=== PATIENT | female | born 1980 | race Caucasian/White ===

== ENCOUNTER 2017-01-13 12:57 | Emergency (ER) | payer SELFPAY ==
[~2017-01-13 12:57] MED LIST: ACYC-63 PO; ALPR0.25 PO; LEVO50TA5 PO
--- NOTE | 2017-01-13 14:43 | RAD ---
Indication right leg pain. Pope scale, color Doppler and spectral imaging was performed. The examination was targeted to the major arteries of the right lower extremity. The right common femoral artery has a normal triphasic waveform. A similar normal triphasic waveform is seen in the deep femoral. A normal triphasic waveform is seen throughout the course of the superficial femoral artery. A similar normal waveform is seen in the popliteal artery. The posterior tibial artery has a normal triphasic waveform as does the peroneal. The anterior tibial artery and dorsal pedal arteries are both triphasic. IMPRESSION: No evidence of significant arterial disease in the major arteries of the right lower extremity
--- NOTE | 2017-01-13 14:51 | PHYS DOC ---
Past History Past Medical History: Anxiety, Depression, Fibromyalgia, Hypothyroid, Migraines , UTI Past Surgical History: Hysterectomy Alcohol Use: Rarely Drug Use: None Adult General Chief Complaint Chief Complaint: BACK PAIN OR INJURY HPI HPI Patient is a 36 year old F who presents with chronic back pain and new leg pain. Jennifer states that she has been pain over the past months to years. She had does not have a primary care doctor and has not had pain medications for her symptoms in several weeks. She denies numbness or tingling. She denies weakness, urinary dysfunction and bowel dysfunction. She states that she has had right leg pain over the past several days. She is concerned that there is a clot as she feels her leg is swollen. She has pain with movement and palpation. She does not feel that there are alleviating factors. Pain does not radiate and is not localized Review of Systems Review of Systems Constitutional: Denies fever or chills [] Eyes: Denies change in visual acuity, redness, or eye pain [] HENT: Denies nasal congestion or sore throat [] Respiratory: Denies cough or shortness of breath [] Cardiovascular: No additional information not addressed in HPI [] GI: Denies abdominal pain, nausea, vomiting, bloody stools or diarrhea [] : Denies dysuria or hematuria [] Musculoskeletal: Negative except history of present illness Integument: Denies rash or skin lesions [] Neurologic: Denies headache, focal weakness or sensory changes [] Endocrine: Denies polyuria or polydipsia [] Family History Family History Noncontributory Current Medications Current Medications Medications reviewed Allergies Allergies Allergies Coded Allergies Type Severity Reaction Last Updated Verified pregabalin Allergy Severe Seizures 03/20/14 No Physical Exam Physical Exam Constitutional: Well developed, well nourished, no acute distress, non-toxic appearance. []Obese HENT: Normocephalic, atraumatic, bilateral external ears normal, oropharynx moist, no oral exudates, nose normal. [] Eyes: EOMI, conjunctiva normal, no discharge. [] Neck: Normal range of motion, no tenderness, supple, no stridor. [] Cardiovascular:Heart rate regular rhythm, no murmur [] Lungs & Thorax: Bilateral breath sounds clear to auscultation [] Abdomen: Bowel sounds normal, soft, no tenderness, no masses, no pulsatile masses. [] Skin: Warm, dry, no erythema, no rash. [] Back: No tenderness, no CVA tenderness. [] Tenderness to light touch bilaterally in upper mid and lower back. Extremities: No tenderness, no cyanosis, no clubbing, ROM intact, no edema. [] No notable size difference in lower extremity. No redness or bruising. Moderate tenderness to light palpation of the right leg Neurologic: Alert and oriented X 3, normal motor function, normal sensory function, no focal deficits noted. [] Psychologic: Affect normal, judgement normal, mood normal. [] Current Patient Data Vital Signs Vital Signs Date Time Temp Pulse Resp B/P (MAP) Pulse Ox O2 Delivery O2 Flow Rate FiO2 01/13/17 13:00 98.0 105 20 98 Room Air Radiology/Procedures Radiology/Procedures Ultrasound with Doppler Impressions: Negative per radiology report Course & Med Decision Making Course & Med Decision Making Pertinent Labs and Imaging studies reviewed. (See chart for details) Her pain is most consistent with fibromyalgia Dragon Disclaimer Dragon Disclaimer This chart was dictated in whole or in part using Voice Recognition software in a busy, high-work load, and often noisy Emergency Department environment. It may contain unintended and wholly unrecognized errors or omissions. Departure Departure: Impression: Primary Impression: Chronic pain Disposition: HOME, SELF-CARE Condition: STABLE Referrals: PCPMIRIAM (PCP) Patient Instructions: Chronic Pain Management Additional Instructions: Jennifer was seen in the emergency department for back and leg pain. No emergency medical condition was found on history or physical exam. She had a normal ultrasound of the leg to evaluate for a DVT. This test was negative. She was encouraged to follow up with a primary care doctor and/or pain management doctor as soon as possible for further management of her chronic medical condition Problem Qualifiers Primary Impression: Chronic pain Chronic pain type: chronic pain syndrome Qualified Codes: G89.4 - Chronic pain syndrome DANO REINA MD Jan 13, 2017 14:51
[2017-01-13 15:25] VITALS: BP 123/71
== END 2017-01-13 15:26 | disposition home or self-care (01) ==
LOC: ER 12:57
DX: G89.4 Chronic pain syndrome (principal); M79.604 Pain in right leg; M54.89 Other dorsalgia; E03.9 Hypothyroidism, unspecified; M79.7 Fibromyalgia; G43.909 Migraine, unspecified, not intractable, without status migrainosus; Z87.440 Personal history of urinary (tract) infections; Z88.8 Allergy status to other drugs, medicaments and biological substances
CPT/HCPCS: 93923; 99284-25

== ENCOUNTER 2017-05-24 15:05 | Emergency (ER) | payer SELFPAY ==
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
[2017-05-24] MEDS ORDERED: HYDR-971 PO (16:42)
[2017-05-24 17:19] VITALS: BP 151/96
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
== END 2017-05-24 17:19 | disposition home or self-care (01) ==
LOC: ER 15:05
DX: S06.0X0A Concussion without loss of consciousness, initial encounter (principal); M24.811 Other specific joint derangements of right shoulder, not elsewhere classified; E03.9 Hypothyroidism, unspecified; Z88.8 Allergy status to other drugs, medicaments and biological substances; V43.52XA Car driver injured in collision with other type car in traffic accident, initial encounter; Y93.89 Activity, other specified; Y99.8 Other external cause status; Y92.488 Other paved roadways as the place of occurrence of the external cause
CPT/HCPCS: 73030; 99284

== ENCOUNTER 2018-05-12 13:16 | Emergency (ER) | payer OTHER ==
[~2018-05-12] VITALS: Ht 160 cm; Wt 136.1 kg
[~2018-05-12 13:16] MED LIST changes: +HYDR-3165 PO
[2018-05-12] MEDS ORDERED: BENZONATATE 100 MG CAPSULE. PO ONE ×2 (13:42→14:00)
[2018-05-12] MEDS ORDERED: IPRATRPIUM/ALBUTEROL 0.5/2.5MG 3 ML NEBU. NEB ONE (13:45)
--- NOTE | 2018-05-12 13:45 | PHYS DOC ---
Past History Past Medical History: Fibromyalgia, Hypothyroid, Other Past Surgical History: Hysterectomy, Knee Replacement, Tonsillectomy Smoking: Cigarettes Alcohol Use: None Drug Use: Marijuana Adult General Chief Complaint Chief Complaint: COUGH HPI HPI Patient is a 38 year old female who presents with complaining of cough since last night. Patient complaining of nonproductive cough with throat and chest soreness with chills since last night associated with myalgia and hoarseness. Patient denies vomiting, diarrhea, sick contact, headache, neck pain. Review of Systems Review of Systems Constitutional: Denies fever, reports chills Eyes: Denies change in visual acuity, redness, or eye pain [] HENT: Reports nasal congestion and sore throat Respiratory: Reports cough and shortness of breath Cardiovascular: No additional information not addressed in HPI [] GI: Denies abdominal pain, nausea, vomiting, bloody stools or diarrhea [] : Denies dysuria or hematuria [] Musculoskeletal: Denies back pain or joint pain [] Integument: Denies rash or skin lesions [] Neurologic: Denies headache, focal weakness or sensory changes [] Endocrine: Denies polyuria or polydipsia [] All other systems were reviewed and found to be within normal limits, except as documented in this note. Current Medications Current Medications Current Medications Medications (Trade) Dose Ordered Sig/Marcelo Start Time Stop Time Status Last Admin Dose Admin Albuterol/ Ipratropium (Duoneb) 3 ml 1X ONCE 05/12/18 13:45 05/12/18 13:46 UNV Benzonatate (Tessalon Perle) 200 mg 1X ONCE 05/12/18 13:45 05/12/18 13:46 UNV Allergies Allergies Allergies Coded Allergies Type Severity Reaction Last Updated Verified pregabalin Allergy Severe Seizures 03/20/14 No Physical Exam Physical Exam Constitutional: Well developed, well nourished, moderate distress, non-toxic appearance. [] HENT: Normocephalic, atraumatic, bilateral external ears normal, oropharynx moist, pharyngeal erythema, no oral exudates, nose normal. [] Eyes: PERRLA, EOMI, conjunctiva normal, no discharge. [] Neck: Normal range of motion, no tenderness, supple, no stridor. [] Cardiovascular:Heart rate regular rhythm, no murmur [] Lungs & Thorax: Bilateral breath sounds clear to auscultation [] Abdomen: Bowel sounds normal, soft, no tenderness, no masses, no pulsatile masses. [] Skin: Warm, dry, no erythema, no rash. [] Back: No tenderness, no CVA tenderness. [] Extremities: No tenderness, no cyanosis, no clubbing, ROM intact, no edema. [] Neurologic: Alert and oriented X 3, normal motor function, normal sensory function, no focal deficits noted. [] Psychologic: Affect normal, judgement normal, mood normal. [] Current Patient Data Vital Signs Vital Signs Date Time Temp Pulse Resp B/P (MAP) Pulse Ox O2 Delivery O2 Flow Rate FiO2 05/12/18 13:20 99.7 103 24 97 Room Air EKG EKG [] Radiology/Procedures Radiology/Procedures [] Course & Med Decision Making Course & Med Decision Making Pertinent Labs reviewed. (See chart for details) Evaluation of patient in ER showed 38-year-old female patient with complaining of cough and congestion and hoarseness since last night. Patient had negative flu test and felt better with DuoNeb and Tessalon. Plan to discharge patient home to diagnose of URI. Dragon Disclaimer Dragon Disclaimer This electronic medical record was generated, in whole or in part, using a voice recognition dictation system. Departure Departure: Impression: Primary Impression: Upper respiratory infection Additional Impressions: Tobacco abuse Tobacco abuse counseling Disposition: HOME, SELF-CARE (at 1437) Condition: IMPROVED Referrals: BRONSON DEVRIES APRN (PCP) Patient Instructions: Smoking Cessation, Tips For Success, Upper Respiratory Infection, Adult Additional Instructions: Drink plenty of liquids Follow-up with your primary care physician in 3-5 days Return to ER if not getting better Scripts Azithromycin (ZITHROMAX) 250 Mg Tablet 1 PKG PO UD for infection, #1 PKG Prov: RUBIN CASON MD 05/12/18 Hydrocodone/Chlorphen P-Stirex (Tussionex Pennkinetic Susp) 115 Ml Cherry.er.12h 5 ML PO BID for cough and congestion, #60 ML Prov: RUBIN CASON MD 05/12/18 Albuterol Sulfate (PROAIR HFA INHALER) 8.5 Gm Hfa.aer.ad 2 PUFF INH PRN Q6HRS PRN for SHORTNESS OF BREATH, #1 INHALER 0 Refills Prov: RUBIN CASON MD 05/12/18 Problem Qualifiers RUBIN CASON MD May 12, 2018 13:45
[2018-05-12 14:32] LABS: INFLUENZA A PATIENT NEGATIVE (NEGATIVE); INFLUENZA B PATIENT NEGATIVE (NEGATIVE)
[2018-05-12] MEDS ORDERED: AZIT250T PO (14:40)
[2018-05-12] MEDS ORDERED: ALBU2.5V8 INH (14:40)
[2018-05-12] MEDS ORDERED: HYDR115S2 PO (14:40)
[2018-05-12 14:51] VITALS: BP 98/58
== END 2018-05-12 15:05 | disposition home or self-care (01) ==
LOC: ER 13:16
DX: J06.9 Acute upper respiratory infection, unspecified (principal); M79.7 Fibromyalgia; I10 Essential (primary) hypertension; F17.210 Nicotine dependence, cigarettes, uncomplicated; Z71.6 Tobacco abuse counseling; Z88.8 Allergy status to other drugs, medicaments and biological substances
CPT/HCPCS: 87804; 94640; 99283; J7620

== ENCOUNTER 2019-02-15 15:46 | Emergency (ER) | payer MEDICAID, OTHER ==
[~2019-02-15] VITALS: Ht 160 cm; Wt 136.1 kg
[~2019-02-15 15:46] MED LIST changes: +ALBU2.5V8 INH; +AZIT250T PO; +HYDR115S2 PO
[2019-02-15 15:57] VITALS: BP 142/73
[2019-02-15] MEDS ORDERED: HYDR-3165 PO (16:04)
[2019-02-15] MEDS ORDERED: PRED20TA PO (16:04)
--- NOTE | 2019-02-15 16:04 | PHYS DOC ---
Past History Past Medical History: Fibromyalgia, Hypothyroid, Other Past Surgical History: Hysterectomy, Knee Replacement, Tonsillectomy Smoking: Cigarettes Alcohol Use: None Drug Use: Marijuana Adult General Chief Complaint Chief Complaint: LOWER BACK PAIN OR INJURY HPI HPI Patient is a [age] year old [sex] who presents with [] Review of Systems Review of Systems Constitutional: Denies fever or chills [] Eyes: Denies change in visual acuity, redness, or eye pain [] HENT: Denies nasal congestion or sore throat [] Respiratory: Denies cough or shortness of breath [] Cardiovascular: No additional information not addressed in HPI [] GI: Denies abdominal pain, nausea, vomiting, bloody stools or diarrhea [] : Denies dysuria or hematuria [] Musculoskeletal: Denies back pain or joint pain [] Integument: Denies rash or skin lesions [] Neurologic: Denies headache, focal weakness or sensory changes [] Endocrine: Denies polyuria or polydipsia [] All other systems were reviewed and found to be within normal limits, except as documented in this note. Allergies Allergies Allergies Coded Allergies Type Severity Reaction Last Updated Verified pregabalin Allergy Severe Seizures 03/20/14 No Physical Exam Physical Exam Constitutional: Well developed, well nourished, no acute distress, non-toxic appearance. [] HENT: Normocephalic, atraumatic, bilateral external ears normal, oropharynx moist, no oral exudates, nose normal. [] Eyes: PERRLA, EOMI, conjunctiva normal, no discharge. [] Neck: Normal range of motion, no tenderness, supple, no stridor. [] Cardiovascular:Heart rate regular rhythm, no murmur [] Lungs & Thorax: Bilateral breath sounds clear to auscultation [] Abdomen: Bowel sounds normal, soft, no tenderness, no masses, no pulsatile masses. [] Skin: Warm, dry, no erythema, no rash. [] Back: No tenderness, no CVA tenderness. [] Extremities: No tenderness, no cyanosis, no clubbing, ROM intact, no edema. [] Neurologic: Alert and oriented X 3, normal motor function, normal sensory function, no focal deficits noted. [] Psychologic: Affect normal, judgement normal, mood normal. [] Current Patient Data Vital Signs Vital Signs Date Time Temp Pulse Resp B/P (MAP) Pulse Ox O2 Delivery O2 Flow Rate FiO2 02/15/19 15:57 98.2 90 18 100 Room Air EKG EKG [] Radiology/Procedures Radiology/Procedures [] Course & Med Decision Making Course & Med Decision Making Pertinent Labs and Imaging studies reviewed. (See chart for details) [] Dragon Disclaimer Dragon Disclaimer This electronic medical record was generated, in whole or in part, using a voice recognition dictation system. Departure Departure: Impression: Primary Impression: Exacerbation of chronic back pain Disposition: HOME, SELF-CARE Condition: STABLE Referrals: BRONSON DEVRIES APRN (PCP) Patient Instructions: Chronic Back Pain Scripts Hydrocodone Bit/Acetaminophen (NORCO 5-325 TABLET) 1 Each Tablet 0.5-1 TAB PO Q6HRS PRN for PAIN, #10 TAB Prov: ALYSA ROUSSEAU DO 02/15/19 Prednisone (PREDNISONE) 20 Mg Tablet 2 TAB PO DAILY for Back pain, #8 TAB Start this prescription tomorrow, Friday02/16/19 Prov: AYLSA ROUSSEAU DO 02/15/19 ALYSA ROUSSEAU DO Feb 15, 2019 16:04
[2019-02-15] MEDS ORDERED: DEXAMETHASONE 4 MG TABLET PO ONE (16:30)
[2019-02-15] MEDS ORDERED: ORPHENADRINE CITRATE 60 MG/2 ML VIAL. IM ONE (16:30)
[2019-02-15] MEDS ORDERED: KETOROLAC 30 MG/ML VIAL. IM ONE (16:30)
[2019-02-15] MEDS ORDERED: HYDROcodone/APAP 5/325MG 1 TAB TABLET PO ONE (16:30)
== END 2019-02-15 17:05 | disposition home or self-care (01) ==
LOC: ER 15:46
DX: G89.29 Other chronic pain (principal); M54.5 Low back pain; M79.7 Fibromyalgia; E03.9 Hypothyroidism, unspecified; F17.210 Nicotine dependence, cigarettes, uncomplicated; Z90.710 Acquired absence of both cervix and uterus; Z88.8 Allergy status to other drugs, medicaments and biological substances
CPT/HCPCS: 96372; 99284; J1885; J2360; J8540

== ENCOUNTER 2019-02-22 10:11 | Emergency (ER) | payer MEDICAID ==
[~2019-02-22] VITALS: Ht 160 cm; Wt 136.1 kg
[~2019-02-22 10:11] MED LIST changes: +PRED20TA PO
--- NOTE | 2019-02-22 10:39 | PHYS DOC ---
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 Does not have a diagnosis of any acute inflammatory or chronic inflammatory process that she knows of otherwise. at 8:45 PM began to have very slow speech speech was just very slow talking very slow still able to get the words out but hard to do so felt very dizzy like the room spinning also felt like the eyes were dizzy she tells me no b double vision no mom thought the right face looked a little droopy. Patient says she feels weak all over she does feel numbness on both her left hand and her right arm and she also feels weakness in both legs more on the right as well as numbness in her lower extremities as well. She has been dealing with chronic back pain she was seen here February 15 for increase in lower back pain that has persisted she is taking medication for that. She does have a history of genital herpes she takes acyclovir for that. No fevers she denies any headache really she is alert and oriented she just has trouble when she talks she is talking slowly she says Review of Systems Review of Systems Constitutional: Denies fever or chills [] Eyes: Denies change in visual acuity, redness, or eye pain [] HENT: Denies nasal congestion or sore throat [] Respiratory: Denies cough or shortness of breath [] Musculoskeletal Integument: Denies rash or skin lesions [] Neurologic: All other systems were reviewed and found to be within normal limits, except as documented in this note. Current Medications Current Medications Current Medications Medications (Trade) Dose Ordered Sig/Marcelo Start Time Stop Time Status Last Admin Dose Admin Fentanyl Citrate (Fentanyl 2ml Vial) 50 mcg 1X ONCE 02/22/19 10:30 02/22/19 10:31 UNV Allergies Allergies Allergies Coded Allergies Type Severity Reaction Last Updated Verified pregabalin Allergy Severe Seizures 03/20/14 No Physical Exam Physical Exam Constitutional: Well developed, well nourished, no acute distress, non-toxic appearance. [] HENT: Normocephalic, atraumatic, bilateral external ears normal, oropharynx moist, no oral exudates, nose normal. [] Eyes: PERRLA, EOMI, conjunctiva normal, no discharge. [] Neck: Normal range of motion, no tenderness, supple, no stridor. [] Cardiovascular:Heart rate regular rhythm, no murmur [] Lungs & Thorax: Bilateral breath sounds clear to auscultation [] Abdomen: Bowel sounds normal, soft, no tenderness, no masses, no pulsatile masses. [] Skin: Warm, dry, no erythema, no rash. [] Back: No tenderness, no CVA tenderness. [] Extremities: No tenderness, no cyanosis, no clubbing, ROM intact, no edema. [] Neurologic: Asee nihss Psychologic: Affect normal, judgement normal, mood normal. [] Current Patient Data Lab Results Laboratory Tests Test 02/22/19 10:26 Glucose (Fingerstick) 116 mg/dL (70-99) H EKG EKG [] Radiology/Procedures Radiology/Procedures [] Impressions: IMPRESSION: 1. No evidence of large- or medium-sized arterial involvement by vasculitis. This technique cannot assess for small vessel involvement. Correlate for the known diagnosis. 2. No intracranial stenosis or aneurysm. 3. No hemodynamically significant cervical arterial stenosis. 4. A 1.8 cm left thyroid nodule could be further assessed sonographically if there is persistent concern. PQRS Compliance Statement - Stenosis calculations for CT, MR and conventional angiography are based upon measurement of the distal ICA diameter in accordance with the NASCET methodology. Stenosis calculations for carotid ultrasound studies are derived from validated velocity criteria which are known to correlate with the NASCET methodology. *One or more of the following individualized dose reduction techniques were utilized for this examination: 1. Automated exposure control. 2. Adjustment of the mA and/or kV according to patient size. 3. Use of iterative reconstruction technique. Electronically signed by: Shirin Simpson MD (02/22/2019 12:31 PM) [facility] Course & Med Decision Making Course & Med Decision Making Pertinent Labs and Imaging studies reviewed. (See chart for details) []39-year-old female obese history of chronic pain hyperlipidemia reported history of cerebral vasculitis last diagnosed 6 years ago she tells me who is presenting with 4 days now of slow speech possible subtle facial droop on examination on the right does have some right leg weakness neuro exam was somewhat challenging overall but a stroke scale for 5 in total patient actually is able to talk just does so quite slowly. This limits her ability to communicate somewhat really speech is not actually slurred just slow. Plan for CT CT angiogram of the head and neck to evaluate the vessels and go from there neck is supple patient is alert and oriented not confused no fever doubt encephalitis at this time. d/w brian edmond to prov i told pt about the thyroid nodule need for f/u Dragon Disclaimer Dragon Disclaimer This electronic medical record was generated, in whole or in part, using a voice recognition dictation system. Departure Departure: Impression: Primary Impression: Speech problem Disposition: XFER SHT-TRM HOSP Condition: STABLE Referrals: BRONSON DEVRIES APRN (PCP) NIHSS - ED NIH Stroke Scale: NIH Stroke Scale Response (Comments) Value Level of Consciousness: 0 Alert/Responsive 0 LOC Questions: 0 Answers both correctly 0 LOC Commands: 0 Performs both tasks 0 Best Gaze: 0 Normal 0 Visual: 0 No visual loss 0 Facial Palsy: 1 Minor paralysis 1 Motor - Left Arm 0 No drift 0 Motor - Right Arm 0 No drift 0 Motor - Left Leg 0 No drift 0 Motor: Right Leg 1 Drift but can hold 1 Limb Ataxia: 1 One limb 1 Sensory: 1 Mid to moderate loss 1 Best Language: 1 Mild to mod aphasia 1 Extinction and Inattention: 0 Normal 0 Total 5 DEANNA ALCANTARA MD Feb 22, 2019 10:39
[2019-02-22 10:40] LABS: BASO # 0.1 x10^3/uL (0.0-0.2); BASO % 1 % (0-3); EOS # 0.2 x10^3/uL (0.0-0.7); EOS % 2 % (0-3); HEMOGLOBIN 13.5 g/dL (12.0-15.5); LYMPH % 20 % (24-48); MEAN CORPUSCULAR HEMOGLOBIN 29 pg (25-35); MEAN CORPUSCULAR HGB CONC 34 g/dL (31-37); MEAN CORPUSCULAR VOLUME 87 fL (79-100); MONO # 0.4 x10^3/uL (0.0-1.1); MONO % 4 % (0-9); NEUT # 6.9 x10^3uL (1.8-7.7); NEUT % 72 % (31-73); PLATELET COUNT 431 x10^3/uL (140-400); RED BLOOD COUNT 4.61 x10^6/uL (3.50-5.40); RED CELL DISTRIBUTION WIDTH 14.8 % (11.5-14.5); WHITE BLOOD COUNT 9.6 x10^3/uL (4.0-11.0)
[2019-02-22 10:55] LABS: ALBUMIN 3.3 g/dL (3.4-5.0); ALBUMIN/GLOBULIN RATIO 0.9 (1.0-1.7); CREATININE 0.8 mg/dL (0.6-1.0); GFR 79.4; POTASSIUM 4.2 mmol/L (3.5-5.1); TOTAL BILIRUBIN 0.4 mg/dL (0.2-1.0); TOTAL PROTEIN 6.9 g/dL (6.4-8.2)
[2019-02-22 11:06] LABS: BACTERIA,URINE FEW /HPF (0-FEW); BILIRUBIN,URINE NEG (NEG); CLARITY,URINE HAZY; COLOR,URINE YELLOW; GLUCOSE,URINE NEG (NEG); NITRITE,URINE NEG (NEG); RBC,URINE OCC /HPF (0-2); SQUAMOUS EPITHELIAL CELL,UR FEW /LPF; UROBILINOGEN,URINE 0.2 mg/dL (0.2 mg/dL); WBC,URINE OCC /HPF (0-4)
[2019-02-22] MEDS ORDERED: IOHEXOL 350 MG/ML 100 ML VIAL. IV ONE (11:15)
[2019-02-22 11:18] LABS: BARBITURATES NEG (NEG); BENZODIAZEPINES NEG (NEG); CANNABINOIDS NEG (NEG); COCAINE NEG (NEG); METHADONE NEG (NEG); OPIATES POS (NEG); PHENCYCLIDINE NEG (NEG)
[2019-02-22 11:19] LABS: AMPHETAMINE/METHAMPHETAMINE NEG (NEG)
--- NOTE | 2019-02-22 12:34 | RAD ---
EXAM: 1. CTA HEAD WITH AND WITHOUT CONTRAST. 2. CTA NECK WITH AND WITHOUT CONTRAST. HISTORY: Cerebral vasculitis, speech delay, lower extremity weakness. TECHNIQUE: Computed tomographic angiography of the head and neck was performed before and after the intravenous administration of iodinated contrast. Three-dimensional reconstructions were also performed. COMPARISON: None. FINDINGS: Angiographic findings: There are limitations from venous contamination. The examination remains diagnostic for the following. The aortic arch has a typical branching pattern. There is no arch vessel stenosis. Both common carotid arteries are patent without stenosis. Both internal carotid arteries are patent without stenosis. The external carotid systems are patent. The vertebral arteries are patent. The basilar artery is patent. Both posterior cerebral arteries are patent. There is a persistent supply of the right posterior cerebral artery. The left posterior cerebral artery is diminutive. The intracranial internal carotid arteries demonstrate no stenosis. The middle cerebral arteries are patent. The anterior cerebral arteries are patent. The anterior communicating artery is visualized. Nonangiographic findings: There is no intracranial hemorrhage. Pope-white differentiation is preserved. The ventricles are normal in size and position. The paranasal sinuses appear clear. The orbits are unremarkable. The temporal bones are unremarkable. Bone windows reveal no suspicious lesions. The lung apices demonstrate no acute abnormality. The parotid glands and submandibular glands are unremarkable. A left thyroid nodule measures 1.8 cm. There are no laryngeal or pharyngeal masses. There are no pathologically enlarged lymph nodes. IMPRESSION: 1. No evidence of large- or medium-sized arterial involvement by vasculitis. This technique cannot assess for small vessel involvement. Correlate for the known diagnosis. 2. No intracranial stenosis or aneurysm. 3. No hemodynamically significant cervical arterial stenosis. 4. A 1.8 cm left thyroid nodule could be further assessed sonographically if there is persistent concern. PQRS Compliance Statement - Stenosis calculations for CT, MR and conventional angiography are based upon measurement of the distal ICA diameter in accordance with the NASCET methodology. Stenosis calculations for carotid ultrasound studies are derived from validated velocity criteria which are known to correlate with the NASCET methodology. *One or more of the following individualized dose reduction techniques were utilized for this examination: 1. Automated exposure control. 2. Adjustment of the mA and/or kV according to patient size. 3. Use of iterative reconstruction technique. Electronically signed by: Shirin Simpson MD (02/22/2019 12:31 PM) [facility]
[2019-02-22 12:45] VITALS: BP 155/96
[2019-02-22] MEDS ORDERED: ASPIRIN 81 MG TAB.CHEW PO ONE (13:00)
== END 2019-02-22 14:08 | disposition short-term general hospital (02) ==
LOC: ER 10:11
DX: F80.89 Other developmental disorders of speech and language (principal); R42 Dizziness and giddiness; R53.1 Weakness; G89.29 Other chronic pain; M79.7 Fibromyalgia; E03.9 Hypothyroidism, unspecified; E66.9 Obesity, unspecified; F17.210 Nicotine dependence, cigarettes, uncomplicated; Z68.43 Body mass index [BMI] 50.0-59.9, adult; Z88.8 Allergy status to other drugs, medicaments and biological substances
CPT/HCPCS: 36415; 70496; 70498; 80053; 80307; 81001; 82947; 85025; 96374; 99285; G0480; J3010; Q9967

== ENCOUNTER 2019-09-08 17:17 | Emergency (ER) | payer MEDICAID ==
[~2019-09-08] VITALS: Ht 160 cm; Wt 144.0 kg
[2019-09-08 17:17] VITALS: BP 159/106
--- NOTE | 2019-09-08 17:56 | PHYS DOC ---
Past History Past Medical History: Arthritis, Fibromyalgia, High Cholesterol, Hypothyroid, IBS, Other Additional Past Medical Histor: DEGENERATIVE DISC DISEASE, CERBRAL VASCULITIS Past Surgical History: Hysterectomy, Other Additional Past Surgical Histo: KNEE SURGER, ABDOMINAL SURGERY. 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 And while here could you check my kidneys because I am having some bilateral flank pain..." Patient is a 39 year old female who presents with above hx and complaints of three weeks of right wrist, hand and edema. Pt. localizes pain in the median nerve. + Tinel sign. There i pain is worse at night. 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 Cap refill and fingertips are equal to cap refill right hand are equal to the cap refill and left hand. The patient gives a history of previous urinary tract infections and reportedly renal issues. Patient denies any history of kidney stones. Patient denies any trauma. Patient denies any specific ill contacts. Patient denies any travel outside the [place] area. Patient denies any history of immunosuppression. Patient normally follows with [facility] for care. Review of Systems: Review of Systems: Constitutional: Denies fever or chills Eyes: Denies change in visual acuity HENT: Denies nasal congestion or sore throat Respiratory: Denies cough or shortness of breath Cardiovascular: Denies chest pain or edema GI: Denies abdominal pain, nausea, vomiting, bloody stools or diarrhea . Complains of bilateral flank pain : Denies dysuria Musculoskeletal: Complains of right hand and wrist pain Integument: Denies rash Neurologic: Denies headache, focal weakness or sensory changes Endocrine: Denies polyuria or polydipsia Lymphatic: Denies swollen glands Psychiatric: Denies depression or anxiety Heart Score: Risk Factors: Risk Factors: DM, Current or recent (<one month) smoker, HTN, HLP, family history of CAD, obesity. Risk Scores: Score 0 - 3: 2.5% MACE over next 6 weeks - Discharge Home Score 4 - 6: 20.3% MACE over next 6 weeks - Admit for Clinical Observation Score 7 - 10: 72.7% MACE over next 6 weeks - Early Invasive Strategies Family History: Family History: Noncontributory to presentation Current Medications: Current Meds: See nursing for home medications Allergies: Allergies: Allergies Coded Allergies Type Severity Reaction Last Updated Verified pregabalin Allergy Severe Seizures 02/22/19 No Physical Exam: PE: Constitutional: Well developed, well nourished, no acute distress, non-toxic appearance. [] HENT: Normocephalic, atraumatic, bilateral external ears normal, oropharynx moist, no oral exudates, nose normal. [] Eyes: PERRLA, EOMI, conjunctiva normal, no discharge. [] Neck: Normal range of motion, no tenderness, supple, no stridor. [] Cardiovascular:Heart rate regular rhythm, no murmur [] Lungs & Thorax: Bilateral breath sounds equal at apex with scattered wheezes on auscultation [] Abdomen: Bowel sounds normal, soft, no tenderness, no masses, no pulsatile masses. [] Obese. Old surgery scars. Skin: Warm, dry, no erythema, no rash. [] Back: No tenderness, no CVA tenderness. [] Extremities: No tenderness, no cyanosis, no clubbing, ROM intact, no edema. [] Except findings and right wrist and hand. Neurologic: Alert and oriented X 3, normal motor function, normal sensory function, no focal deficits noted. [] Psychologic: Affect anxious, judgement normal, mood normal. [] EKG: EKG: [] Radiology/Procedures: Radiology/Procedures: [][address] [address] IMAGING REPORT Signed PATIENT: ROSARIO DONOVAN ACCOUNT: [id number] : 1980 LOCATION: ER AGE: 39 SEX: F EXAM STATUS: REG ER ORD. PHYSICIAN: ERINN WEST MD REASON: pain PROCEDURE: WRIST 3V RIGHT Three-view right wrist radiographs 09/08/2019 CLINICAL HISTORY: Right wrist pain. Portable PA, lateral and oblique digital radiographs of the right wrist were obtained. No fracture or dislocation of the right wrist is seen. No radiopaque foreign body is noted. No significant degenerative changes are noted. IMPRESSION: No acute osseous abnormality is seen. Electronically signed by: Alistair Isbell MD (09/08/2019 7:52 PM) [id number] DICTATED AND SIGNED BY: ALISTAIR ISBELL MD DATE: 09/08/191951 CC: ERINN WEST MD; PCP,NO ~ Course & Med Decision Making: Course & Med Decision Making Pertinent Labs and Imaging studies reviewed. (See chart for details) Ice, elevation, rest and wear splint. Take tylenol and ibuprofen for pain. If no relief follow with Orthro. Impression: 1. Carpal Tunnel Syndrome 2. Bilateral Flank pain [] Dragon Disclaimer: Dragon Disclaimer: This electronic medical record was generated, in whole or in part, using a voice recognition dictation system. Departure Departure: Disposition: 01 HOME/RESIDENCE PRIOR TO ADM Condition: STABLE Referrals: PCP,NO (PCP) Dragon Disclaimer This chart was dictated in whole or in part using Voice Recognition software in a busy, high-work load, and often noisy Emergency Department environment. It may contain unintended and wholly unrecognized errors or omissions. Dragon Disclaimer This chart was dictated in whole or in part using Voice Recognition software in a busy, high-work load, and often noisy Emergency Department environment. It may contain unintended and wholly unrecognized errors or omissions. Dragon Disclaimer This chart was dictated in whole or in part using Voice Recognition software in a busy, high-work load, and often noisy Emergency Department environment. It may contain unintended and wholly unrecognized errors or omissions. Dragon Disclaimer This chart was dictated in whole or in part using Voice Recognition software in a busy, high-work load, and often noisy Emergency Department environment. It may contain unintended and wholly unrecognized errors or omissions. Dragon Disclaimer This chart was dictated in whole or in part using Voice Recognition software in a busy, high-work load, and often noisy Emergency Department environment. It may contain unintended and wholly unrecognized errors or omissions. ERINN WEST MD September 08, 2019 17:56
[2019-09-08 18:48] LABS: AMPHETAMINE/METHAMPHETAMINE NEG (NEG); BARBITURATES NEG (NEG); BENZODIAZEPINES NEG (NEG); CANNABINOIDS NEG (NEG); COCAINE NEG (NEG); METHADONE NEG (NEG); OPIATES NEG (NEG); PHENCYCLIDINE NEG (NEG)
[2019-09-08 18:56] LABS: BILIRUBIN,URINE NEG (NEG); CLARITY,URINE CLEAR; COLOR,URINE STRAW; GLUCOSE,URINE NEG (NEG); NITRITE,URINE NEG (NEG); UROBILINOGEN,URINE 0.2 mg/dL (0.2 mg/dL)
[2019-09-08 18:57] LABS: BACTERIA,URINE FEW /HPF (0-FEW); RBC,URINE 0 /HPF (0-2); SQUAMOUS EPITHELIAL CELL,UR FEW /LPF; WBC,URINE 0 /HPF (0-4)
[2019-09-08 19:43] LABS: CALCIUM 9.2 mg/dL (8.5-10.1); CREATININE 0.7 mg/dL (0.6-1.0); GFR 92.7
[2019-09-08 19:50] LABS: ALBUMIN 3.4 g/dL (3.4-5.0); ALBUMIN/GLOBULIN RATIO 0.8 (1.0-1.7); DIRECT BILIRUBIN 0.1 mg/dL (0.0-0.2); TOTAL BILIRUBIN 0.2 mg/dL (0.2-1.0); TOTAL PROTEIN 7.5 g/dL (6.4-8.2)
[2019-09-08 19:53] LABS: BASO % 1 % (0-3); EOS # 0.3 x10^3/uL (0.0-0.7); EOS % 3 % (0-3); HEMATOCRIT 42.2 % (36.0-47.0); HEMOGLOBIN 14.2 g/dL (12.0-15.5); LYMPH # 2.7 x10^3/uL (1.0-4.8); LYMPH % 31 % (24-48); MEAN CORPUSCULAR HEMOGLOBIN 29 pg (25-35); MEAN CORPUSCULAR HGB CONC 34 g/dL (31-37); MEAN CORPUSCULAR VOLUME 86 fL (79-100); MONO # 0.7 x10^3/uL (0.0-1.1); MONO % 8 % (0-9); NEUT # 5.1 x10^3uL (1.8-7.7); NEUT % 58 % (31-73); PLATELET COUNT 517 x10^3/uL (140-400); RED BLOOD COUNT 4.89 x10^6/uL (3.50-5.40); RED CELL DISTRIBUTION WIDTH 14.5 % (11.5-14.5); WHITE BLOOD COUNT 8.8 x10^3/uL (4.0-11.0)
--- NOTE | 2019-09-08 19:55 | RAD ---
Three-view right wrist radiographs 09/08/2019 CLINICAL HISTORY: Right wrist pain. Portable PA, lateral and oblique digital radiographs of the right wrist were obtained. No fracture or dislocation of the right wrist is seen. No radiopaque foreign body is noted. No significant degenerative changes are noted. IMPRESSION: No acute osseous abnormality is seen. Electronically signed by: Alistair Pike MD (09/08/2019 7:52 PM) [id number]
== END 2019-09-08 20:45 | disposition home or self-care (01) ==
LOC: ER 17:17
DX: G56.01 Carpal tunnel syndrome, right upper limb (principal); R10.9 Unspecified abdominal pain; R60.0 Localized edema; M25.531 Pain in right wrist; M19.90 Unspecified osteoarthritis, unspecified site; M79.7 Fibromyalgia; E78.00 Pure hypercholesterolemia, unspecified; E03.9 Hypothyroidism, unspecified; F17.210 Nicotine dependence, cigarettes, uncomplicated; F12.90 Cannabis use, unspecified, uncomplicated; Z90.710 Acquired absence of both cervix and uterus; Z98.890 Other specified postprocedural states
CPT/HCPCS: 29125; 36415; 73110; 80053; 80061; 80076; 80307; 81001; 82550; 84484; 85025; 99284